=== PATIENT | male | born 1980 | race Caucasian/White ===

== ENCOUNTER 2020-05-12 12:06 | Day surgery (SDC) | payer OTHER ==
[2020-05-09 14:59] VITALS: BMI 32.8
[2020-05-12 12:54] VITALS: TEMP 97.8
[2020-05-12 13:26] VITALS: BP 123/76; PULSE 77
--- NOTE | 2020-05-15 17:20 | PATH ---
Surgical Pathology Report Patient Name: BESSY MURRY [facility]. Rec. #: [id number] /Age/Gender: 1980 (Age: 40) / M Account: [id number] Location: U-ENDOSCOPY Taken: 05/12/2020 Received: 05/12/2020 Reported: 05/15/2020 Physicians: Cole Sesay M.D. Specimen(s) Received ESOPHAGUS Clinical History Esophagitis Postoperative diagnosis: Esophagitis, hiatal hernia Final Diagnosis "ESOPHAGUS", BIOPSY: GASTRIC CARDIAC TYPE MUCOSA WITH MODERATE CHRONIC ACTIVE GASTRITIS. NO SQUAMOUS MUCOSA, INTESTINAL METAPLASIA, OR DYSPLASIA IDENTIFIED. IMMUNOHISTOCHEMICAL STAIN FOR H. PYLORI IS NEGATIVE. Positive and negative controls (internal if applicable) show appropriate results. Electronically Signed Emma Mccall M.D. Gross Description Received in formalin, labeled "biopsy esophagus" are 2 malave, irregular portions of soft tissue measuring 0.2 and 0.3 cm. in greatest dimension. The specimens are submitted in toto in one cassette. /05/12/2020 [facility]/05/12/2020
== END 2020-05-12 13:44 | disposition home or self-care (01) ==
LOC: JASU-ENDO 12:06
PROVIDERS: ATTEND Internal Medicine Gastroenterology
PROC: 0DB38ZX Excision of Lower Esophagus, Via Natural or Artificial Opening Endoscopic, Diagnostic (ICD-10-PCS; principal; 2020-05-12 12:00)
DX: K21.0 Gastro-esophageal reflux disease with esophagitis (principal); K44.9 Diaphragmatic hernia without obstruction or gangrene
CPT/HCPCS: 88305-TC; 88342-TC